=== PATIENT | female | born 1965 ===

== ENCOUNTER 2022-04-05 11:24 | Observation (INO) | payer OTHER ==
[~2022-04-05] VITALS: Ht 154.9 cm; Wt 88.5 kg
[2022-04-05 14:25] LABS: Anti-Xa UFH, PHA Monitoring 0.38 IU/mL; International Normalized Ratio 1.1; Prothrombin Time Results 11.5 Sec (9.7-11.5)
--- NOTE | 2022-04-05 14:51 | NUR ---
ADMIT PT ARRIVED FROM TRANSPORT TEAM AT APPROX 2 PM. PT ALERT, ORIENTED, ANXIOUS. VSS. RA. TELEMETRY REPORTS BIGIMENY. PT C/O 01/12 FLANK PAIN RADIATING TO BLADDER/GROIN. PT UP TO BSC TO VOID. PT ORIENTED TO ROOM, CALL LIGHT. PHARMACY IN [place] CALLED TO HAVE FAX MEDICATION LIST. LEAD SYSTEMS DEVELOPER IN ROOM CURRENTLY DOING ECHO ULTRASOUND. CALL LIGHT IN REACH.
[2022-04-05 14:53] LABS: Hemoglobin 14.8 g/dL (11.5-16.0); Mean Platelet Volume 9.8 fL (9.1-12.4); Platelet Count 119 K/mm3 (150-400)
[2022-04-05 15:12] LABS: Bun/Creatinine Ratio 31.4 (12.0-20.0); Calcium, Blood 8.5 mg/dL (8.5-10.1); Creatinine, Blood 0.54 mg/dL (0.40-1.00); Potassium, Blood 3.8 mmol/L (3.5-5.5)
[2022-04-05] MEDS ORDERED: LEVOTHYROXINE50 MC7 PO (16:35)
[2022-04-05] MEDS ORDERED: Isosorbide Mono30 MG PO (16:36)
[2022-04-05] MEDS ORDERED: ALBU90OI INH (16:37)
[2022-04-05] MEDS ORDERED: GABA300 PO (16:40)
[2022-04-05] MEDS ORDERED: HYDPAM25 PO (16:40)
[2022-04-05] MEDS ORDERED: METF500 PO (16:42)
[2022-04-05] MEDS ORDERED: Bentyl10 MG PO (16:42)
[2022-04-05] MEDS ORDERED: GLYB2.5 PO (16:45)
[2022-04-05] MEDS ORDERED: Celexa20 MG PO (16:46)
[2022-04-05] MEDS ORDERED: FAMO20 PO (16:47)
[2022-04-05] MEDS ORDERED: Omeprazole20 M1 PO (16:48)
[2022-04-05] MEDS ORDERED: ELIQUIS5 M2 PO (16:49)
[2022-04-05] MEDS ORDERED: LISI5 PO (16:49)
[2022-04-05] MEDS ORDERED: MONT10T PO (16:50)
--- NOTE | 2022-04-05 19:45 | NUR ---
ASSUMED CARE. AOX3, BASELINE SLURRED SPEECH FROM PREVIOUS STROKE, ABLE TO GET NEEDS ACROSS. RIGHT FLANK PAIN THAT RADIATES DOWN TO GROIN, COMES AND GOES, EXACERBATED BY TURNING TO THE RIGHT. 10/10 AT TIMES. CHEST PAIN LEFT SIDE OF CHEST ACROSS TO THE RIGHT AND DOWN LEFT ARM, 4/10. DENIES ANY SOB, DIZZINESS, OR N/T. TELE IS PVC WITH OCCATIONAL BIGEMINY, ST HIGHEST IS 110'S. SHE HAS HAD PREVIOUS ID X2. EF IS 25-30% WITH ELEVATED BNP. HEPARIN GTT AT 15 UNITS/KG/HR. GOOD APPETITE, BUT HAS NOT EATEN SINCE FRIDAY SHE STATES, LAST BM WAS ALSO FRIDAY. DIFFICULTY URINATING, HAS TO PUSH TO VOID, URINE IS VERY CONCENTRATED DARK BEA AND ONLY HAD 100CC OUT. DISUCSSED HYDRATION. UA WAS NEGATIVE AND CT NEGATIVE FOR STONE. WILL MEDICATE AND CALL MD ABOUT DIET SHE STATES SHE IS HUNGRY. CALL LIGHT IN REACH, ASSISTED BACK TO BED.
--- NOTE | 2022-04-05 20:56 | NUR ---
SPOKE TO RESIDENT REGARDING PAIN IN THE RIGHT FLANK DOWN TO GROIN, DIFFICULTY URINATING, AND DIET. NEW ORDERS RECEIVED.
[2022-04-06 04:31] LABS: Hemoglobin 13.8 g/dL (11.5-16.0); Mean Platelet Volume 10.5 fL (9.1-12.4); Platelet Count 102 K/mm3 (150-400)
--- NOTE | 2022-04-06 05:31 | NUR ---
SHIFT SUMMARY: PT REMAINS PAINFUL MOSTLY TO THE RIGHT FLANK AREA DOWN INTO THE GROIN. MILD CHEST PAIN OFF AND ON FROM LEFT CHEST TO THE RIGHT. HYDROCODONE GIVEN X2 WHICH HELPED TO RELEIVE. LS REMAIN VERY COARSE T/O, NO IMPROVMEMENT NOTED WITH INHALERS. DIET CHANGED TO SOFT MECHANICAL, SHE TOLERATED SEVERAL SNACKS. CONTINUES TO HAVE DIFFICULTY URINATING HAS TO PUSH URINE OUT. MD WAS MADE AWARE OF SITUATION, VS WNL, SINUS TACH WITH PVCS ON MONITOR. HEPARIN CONTIUES AT CURRENT RATE WITH NO CHANGES THE ENTIRE SHIFT. NO OTHER CHANGES TO NOTE. CALL LIGHT REMAINS IN REACH.
--- NOTE | 2022-04-06 11:34 | NUR ---
CARE ASSUMPTION THIS RN ASSUMED CARE AT 0700. VSS. TELE. NEURO IS INTACT, ALERT AND ORIENTED X4. PERRLA. PATIENT REPORTS RIGHT FLANK PAIN. PATIENT REPORTS NO SHORTNESS OF BREATH. PATIENT REPORTS NO CHEST PAIN. PATIENT IS ABLE TO VOID, BUT IT IS DIFFICULT AND PUSHES TO VOID WITH SMALL AMOUNT OUT. PATIENT IS ON NEW MEDICATION TO SEE IF THIS WILL HELP. SEE EMAR AND ORDERS. MD MCCARTNEY IN TO SEE PATIENT THIS AM AND DISCUSSED PLAN OF CARE. MD AMES IN TO SEE PATIENT THIS AM AND DISCUSSED PLAN OF CARE. PATIENT HAD A SHOWER THIS AM INDEPDENTLY AND PERFORM MORING ADLS INDEPDENTLY. PATIENT CALLS WHEN NEEDING ASSISTANCE. CALL LIGHT WITHIN REACH AND BED IN LOWEST POSITION. WILL CONTINUE TO MONITOR AND PROVIDE CARE.
--- NOTE | 2022-04-06 16:44 | NUR ---
SHIFT SUMMARY PATIENT IS MED STATUS WITH TELE. NEURO REMAINS INTACT. VSS. PATIENT HAS HAD RIGHT FLANK PAIN THROUGHOUT THE SHIFT AND MEDICATED FOR IT NEEDED, SEE EMAR. PLAN IS FOR PATIENT TO DISCHARGE IN THE MORNING. NO ACUTE CHANGES THIS SHIFT. CALL LIGHT WITHIN REACH AND BED IN LOWEST POSITION. WILL CONTINUE MONITOR AND PROVIDE CARE UNTIL HAND OFF WITH NOC SHIFT.
--- NOTE | 2022-04-06 21:00 | NUR ---
REPORT FROM JAQUAN IN PCU. PATIENT ARRIVED TO ROOM 305 AT 2049 FROM PCU 4. A&OX4. C/O SOB AFTER AMBULATING FROM GURNEY TO BED. 02 97RA, HR 100, BREATHING HEAVILY, RR 18, VSS, RT CALLED BY STEAM GIGGER TO EVALUATE
[2022-04-07 08:20] LABS: Bun/Creatinine Ratio 24.5 (12.0-20.0); Calcium, Blood 8.2 mg/dL (8.5-10.1); Creatinine, Blood 0.53 mg/dL (0.40-1.00); Potassium, Blood 3.5 mmol/L (3.5-5.5)
--- NOTE | 2022-04-07 10:40 | NUR ---
En from telemetry calls to report that pt had a 5 beat run of PVC's. At this time, pt denies chest pain but continues to report the chronic right flank pain. When she ambulates, pt becomes anxious related to the pain. RN observes pt, who is sitting at the edge of her bed, trying deep breathing exercises to calm herself. Denies difficulty breathing or chest pain, attributes anxiety to right flank pain.
--- NOTE | 2022-04-07 11:48 | NUR ---
PT IS ATTEMPTING TO FIND A RIDE BACK TO [place]. SHE IS HAVING DIFFICULTY FINDING TRANSPORTATION. CHARGE NURSE SPOKE TO NURSING SUPERVISER, AND ARRANGED FOR A ONE NIGHT STAY AT A HOTEL PAID BY [employer]. [employer] WILL PROVIDE A ROHITH RIDE TO THE HOTEL. PT WILL THEN ARRANGE FOR TRANSPORTATION [place]ENT[place] FROM THE HOTEL TO [place]. PT STATES HER PHARMACY IS [facility] IN [place]. A HARD SCRIPT FOR PAIN MEDICATION, SIGNED BY DR. MCCARTNEY, WILL BE GIVEN TO PT.
--- NOTE | 2022-04-07 12:02 | NUR ---
[facility] NOT[facility] PT WILL BE REMOVING TELE FOR A SHOWER.
[2022-04-07] MEDS ORDERED: ASPI81CH PO (12:09)
[2022-04-07] MEDS ORDERED: METO25ER PO (12:09)
[2022-04-07] MEDS ORDERED: DOCUZEN 8.6-501 EACH PO (12:09)
[2022-04-07] MEDS ORDERED: OXYB5 PO (12:10)
--- NOTE | 2022-04-07 13:51 | NUR ---
LATE ENTRY: PT WAS DISCHARGED VIA WHEELCHAIR TO CARE OF [facility]. DISCHARGE INSTRUCTIONS REVIEWED WITH PT PRIOR TO D/C. POWERGLIDE IV REMOVED FROM RIGHT FOREARM. SCRIPT FOR HYDROCODONE, SIGNED BY DR. MCCARTNEY, GIVEN TO PT. PERSONAL BELONGINGS RETURNED TO PT. SHE HAS A ROOM BOOKED AT THE [facility] UNDER HER NAME. DISCHARGE SCRIPTS WERE FAXED TO [facility] BY CHARGE NURSE VISHNU.
== END 2022-04-07 13:23 | disposition home or self-care (01) ==
LOC: PCU 11:24 → MEDS 13:03 → PCU 14:20 → MEDS 04-06 20:50
PROVIDERS: Internal Medicine; ADMIT Internal Medicine
DX: R10.9 Unspecified abdominal pain (principal); R11.15 Cyclical vomiting syndrome unrelated to migraine; R77.8 Other specified abnormalities of plasma proteins; M54.9 Dorsalgia, unspecified; I50.20 Unspecified systolic (congestive) heart failure; I48.91 Unspecified atrial fibrillation; I25.2 Old myocardial infarction; Z79.01 Long term (current) use of anticoagulants; Z86.73 Personal history of transient ischemic attack (TIA), and cerebral infarction without residual deficits; Z87.891 Personal history of nicotine dependence; Z88.5 Allergy status to narcotic agent
CPT/HCPCS: 36415; 71045; 80048; 83880; 84443; 84484; 85014; 85018; 85049; 85520; 85610; 85730; 94640; 94664; 94760; 96375; A9270; C1751; C8929; G0378; J1644; J1940; Q9957